=== PATIENT | male | born 1935 | race Caucasian/White ===

== ENCOUNTER 2016-11-12 09:23 | Emergency (ER) | payer MEDICARE, BC ==
[2016-11-12 10:32] LABS: BLOOD UREA NITROGEN 19 mg/dL (9-20); CALCIUM 8.4 mg/dL (8.4-10.2); CHLORIDE 106 mmol/L (98-107); GLUCOSE 100 mg/dL (70-100); MAGNESIUM 2.4 mg/dL (1.6-2.3); POTASSIUM 3.9 mmol/L (3.5-5.1); SODIUM 143 mmol/L (137-145)
[2016-11-12 10:39] LABS: BASOPHILS 0.6 % (0.0-2.0); EOSINOPHILS# 0.2 X 10^3uL (0.0-0.4); HEMATOCRIT 41.4 % (42.0-54.0); HEMOGLOBIN 13.5 g/dL (14.0-18.0); LYMPHOCYTES 27.9 % (20.0-40.0); LYMPHOCYTES# 1.4 X 10^3uL (0.8-3.8); MEAN CORPUS. HGB CONCENTRATION 32.7 g/dL (32.0-36.0); MEAN CORPUSCULAR HEMOGLOBIN 25.5 pg (29.0-35.0); MEAN PLATELET VOLUME 7.3 fL (7.4-10.4); MONOCYTES 8.6 % (2.0-10.0); MONOCYTES# 0.4 X 10^3uL (0.2-1.0); NEUTROPHILS 58.9 % (54.0-75.0); PLATELET COUNT 270 X 10^3uL (130-440); RED CELL DISTRIBUTION WIDTH 14.7 % (11.5-14.5)
[2016-11-12 10:44] LABS: TROPONIN I < 0.012 ng/mL (0.00-0.034)
--- NOTE | 2016-11-12 10:59 | ER PHYSICIAN DOCUMENTATION ---
Physician Documentation [facility] Name:Steven Butler Age:81 yrs Sex:Male :1935 Arrival Date:11/12/2016 Time:09:23 Bed1 Private MD: Ender Monte Disposition: 11/12/16 10:49 Discharged to Home/Self Care. Impression: Shingles, Atypical Chest Pain. - Condition is Good. - Discharge Instructions: HERPES ZOSTER, CHEST PAIN Atypical - CHEST PAIN, Uncertain Cause. - Medical Reconciliation form form. - Follow up: Private Physician; When: As needed; Reason: Worsening of condition. - Problem is new. - Symptoms are unchanged. HPI: 11/12 10:08 This 81 yrs old Male presents to ER via Private Vehicle with complaints of sc Arm Pain - L. 10:08 The patient or guardian complains of pain, that is acute. The complaints affect the sc left bicep, dorsal aspect of left forearm and left hand. Context: The problem was sustained at home. Treatment prior to arrival includes: no previous treatment. The patient has been recently seen by a physician: the patient's primary care provider, yesterday, with similar presenting complaints, and apparently given a diagnosis of shingles. left arm and chest discomfort dxd with shingles but got to worrying about heart. Historical: - Allergies: No known drug Allergies; - Home Meds: 1. None - PMHx: None; - PSHx: Parathyroidectomy; - Tetanus: < 10 years. - Ebola Screening: : Patient negative for fever greater than or equal to 101.5 degrees Fahrenheit, and additional compatible Ebola Virus Disease symptoms. Patient denies exposure to infectious person. Patient denies travel to an Ebola-affected area in the 21 days before illness onset. No symptoms or risks identified at this time. . - Immunization history: Pneumococcal vaccine status is unknown, Flu Vaccine < 1 year. - Social history: Smoking status: Patient states was never smoker of tobacco. Patient/guardian denies using alcohol, street drugs, IV drugs, marijuana. ROS: 10:11 Constitutional: Negative for fever, chills, and weight loss. sc Eyes: Negative for injury, pain, redness, and discharge. ENT: Negative for injury, pain, and discharge. Neck: Negative for injury, pain, and swelling. Cardiovascular: Negative for chest pain, palpitations, and edema. Respiratory: Negative for shortness of breath, cough, wheezing, and pleuritic chest pain. Abdomen/GI: Negative for abdominal pain, nausea, vomiting, diarrhea, and constipation. : Negative for injury, bleeding, discharge, and swelling. Skin: Negative for injury, rash, and discoloration. 10:11 Neuro: Negative for headache, weakness, numbness, tingling, and seizure. sc 10:11 MS/extremity: Positive for rash. Exam: Constitutional: This is a well developed, well nourished patient who is awake, alert, and in no acute distress. Head/Face: Normocephalic, atraumatic. Eyes: Pupils equal round and reactive to light, extra-ocular motions intact. Lids and lashes normal. Conjunctiva and sclera are non-icteric and not injected. Cornea within normal limits. Periorbital areas with no swelling, redness, or edema. ENT: Nares patent. No nasal discharge, no septal abnormalities noted. Tympanic membranes are normal and external auditory canals are clear. Oropharynx with no redness, swelling, or masses, exudates, or evidence of obstruction, uvula midline. Mucous membranes moist. Neck: Trachea midline, no thyromegaly or masses palpated, and no cervical lymphadenopathy. Supple, full range of motion without nuchal rigidity, or vertebral point tenderness. No meningismus. Chest/axilla: Normal chest wall appearance and motion. Nontender with no deformity. No lesions are appreciated. Cardiovascular: Regular rate and rhythm with a normal S1 and S2. No gallops, murmurs, or rubs. Normal PMI, no JVD. No pulse deficits. Respiratory: Lungs have equal breath sounds bilaterally, clear to auscultation and percussion. No rales, rhonchi or wheezes noted. No increased work of breathing, no retractions or nasal flaring. Abdomen/GI: Soft, non-tender, with normal bowel sounds. No distension or tympany. No guarding or rebound. No evidence of tenderness throughout. Back: No spinal tenderness. No costovertebral tenderness. Full range of motion. 10:11 Neuro: Awake and alert, GCS 15, oriented to person, place, time, and situation. wv Cranial nerves II-XII grossly intact. Motor strength 5/5 in all extremities. Sensory grossly intact. Cerebellar exam normal. Normal gait. 10:11 Musculoskeletal/extremity: Extremities: grossly normal except: rash, ROM: intact in all extremities, Circulation is intact in all extremities. Sensation intact. Vital Signs: 09:50 BP 172 / 97; Pulse 74; Resp 16; Temp 97.9; Pulse Ox 92% on R/A; sc1 10:25 BP 155 / 83; Pulse 75; Resp 16; Pulse Ox 92% on R/A; sc1 MDM: 09:30 Patient medically screened. wv 10:12 Differential diagnosis: shingles vs cardiac. Data reviewed: vital signs, nurses notes, wv lab test result(s), EKG, and as a result, I will continue to observe the patient. Counseling: I had a detailed discussion with the patient and/or guardian regarding: the historical points, exam findings, and any diagnostic results supporting the discharge/admit diagnosis, lab results, the need for outpatient follow up, with the patient's primary care provider. 10:45 EKG attached [facility] [place] 10:56 ECG:. wv 11/12 10:41 Order name: CBC AUTO DIF, MDIF/RMOR IF IND; Complete Time: 10:48 EDMS 11/12 10:48 Interpretation: Normal Except: HEMATOCRIT 41.4; mild anemia. wv 11/12 10:44 Order name: BASIC METABOLIC PANEL; Complete Time: 10:48 EDMS 11/12 10:48 Interpretation: Normal. wv 11/12 10:44 Order name: MAGNESIUM; Complete Time: 10:48 EDMS 11/12 10:48 Interpretation: Normal. wv 11/12 10:44 Order name: TROPONIN I; Complete Time: 10:48 EDMS 11/12 10:48 Interpretation: Normal. wv 11/12 09:52 Order name: EKG - 12 Lead; Complete Time: 10:08 wv1 EC:56 Rate is 80 beats/min. Rhythm is regular. QRS [place] is Normal. NM interval is normal. QRS sc interval is normal. QT interval is prolonged. T waves are Flattened. No ST changes noted. Clinical impression: Abnormal EKG without significant change. Interpreted by me. Reviewed by me. Dispensed Medications: 10:00 Drug: Aspirin 81 mg, 4 tabs, total of 324 mg - Aspirin 81 mg; Route: PO; wv1 10:59 Follow up: Response: No adverse reaction sc1 Signatures: Gisel Cross, SUDHAKAR RN sc1 Ender Orosco MD MD wv
--- NOTE | 2016-11-12 10:59 | ER NURSING DOCUMENTATION ---
Nurse's Notes [facility] Name:Steven Butler Age:81 yrs Sex:Male :1935 Arrival Date:11/12/2016 Time:09:23 Bed1 Private MD: Diagnosis:Shingles;Atypical Chest Pain Presentation: 11/12 09:27 Acuity: MARLEN 3 tn1 09:35 Presenting complaint: Patient states: he was diagnosed with shingles yesterday. Pt. has sc1 red raised areas on his left arm and has a smaller area on his chest. pt. c/o left arms pain down to his fingers and some left sided chest pain. Transition of care: Home. 09:35 Method Of Arrival: Private Vehicle tn1 09:48 Notified ED Physician of patient's arrival and CC Dr. Orosco notified. tn1 Triage Assessment: 09:50 General: Appears in no apparent distress, well developed, well nourished, well groomed, tn1 Behavior is cooperative, pleasant. Pain: Complains of pain in anterior aspect of left upper chest, left breast and left arm. Historical: - Allergies: No known drug Allergies; - Home Meds: 1. None - PMHx: None; - PSHx: Parathyroidectomy; - Tetanus: < 10 years. - Ebola Screening: : Patient negative for fever greater than or equal to 101.5 degrees Fahrenheit, and additional compatible Ebola Virus Disease symptoms. Patient denies exposure to infectious person. Patient denies travel to an Ebola-affected area in the 21 days before illness onset. No symptoms or risks identified at this time. . - Immunization history: Pneumococcal vaccine status is unknown, Flu Vaccine < 1 year. - Social history: Smoking status: Patient states was never smoker of tobacco. Patient/guardian denies using alcohol, street drugs, IV drugs, marijuana. Screenin:51 Infectious Disease Risk None. Abuse screen: Denies threats or abuse. Nutritional tn1 screening: No deficits noted. Vital Signs: 09:50 BP 172 / 97; Pulse 74; Resp 16; Temp 97.9; Pulse Ox 92% on R/A; sc1 10:25 BP 155 / 83; Pulse 75; Resp 16; Pulse Ox 92% on R/A; tn1 ED Course: 09:25 Patient arrived in ED. ama 09:27 Gisel Cross, RN is Primary Nurse. [facility] 09:27 Triage completed. tn1 09:30 Ender Orosco MD is Attending Physician. tn 09:40 EKG done per protocol. Performed by ED Staff. Shown to ED physician. tn1 09:40 EKG done. (by ED staff). Reviewed by Ender Orosco MD. tn1 09:50 Inserted saline lock: 20 gauge in right hand and blood collected. [facility] 10:37 Valuables Remains with patient. [facility] 10:45 EKG attached [facility] 10:51 Discontinued lock intact, bleeding controlled, pressure dressing applied, No sc redness/swelling at site. Administered Medications: 10:00 Drug: Aspirin 81 mg, 4 tabs, total of 324 mg - Aspirin 81 mg; Route: PO; [facility] 10:59 Follow up: Response: No adverse reaction [facility] Outcome: 10:49 Discharge ordered by . tn 10:59 Patient left the ED. [facility] 11/13 10:05 Discharge F/U Call: Unable to reach: no answer 11/14 09:33 Discharge F/U Call: Spoke with: patient. other: Name: pt states he is not having fun st with the shingles but he has no questions or concerns. He states that the medication is helping some. Signatures: Gabrielle Recinos RN RN st Campbell, Sandy, RN RN [facility] Ender Orosco MD MD sc Averdick, Andrew, Reg Reg ama
== END 2016-11-12 10:59 | disposition home or self-care (01) ==
LOC: ER 09:23
DX: B02.9 Zoster without complications (principal); R07.89 Other chest pain; R94.31 Abnormal electrocardiogram [ECG] [EKG]
CPT/HCPCS: 36415; 80048; 83735; 84484; 85025; 93005; 93010; 99284; 99285